=== PATIENT | female | born 1995 | race Caucasian/White ===

== ENCOUNTER 2021-03-29 20:52 | Emergency (ER) | payer OTHER, SELFPAY ==
[2021-03-29 20:54] VITALS: BP 150/80; PULSE 105; RESP 16; TEMP 36.6; O2SAT 98; BMI 18.6
[2021-03-29 21:38] LABS: MANUAL DIFF FLAG NO
[2021-03-29 21:41] LABS: Appearance Urine CLEAR; Color Urine YELLOW; Glucose Urine UA NEG (NEG); Leukocyte Esterase Urine NEG (NEG); Nitrite Urine NEG (NEG); PH 5.5 (5.0-8.0); Specific Gravity - Urine 1.015 (1.005-1.025); Urine Blood NEG (NEG); Urine Ketones 5 MG/DL (NEG); Urine Protein NEG (NEG-TRACE)
[2021-03-29 21:46] LABS: Basophils Percent Auto 0.4 % (0-2); Eosinophils Absolute Auto 0.2 X10*3/uL (0.0-0.4); Eosinophils Percent Auto 2.2 % (0-4); Hematocrit 39.6 % (37-47); Hemoglobin 13.6 g/dl (12.0-16.0); Imm Gran Abs Auto 0.01 X10*3/uL (0.00-0.03); Imm Gran Pct Auto 0.1 % (0.0-0.4); Lymphocytes Absolute Auto 1.8 X10*3/uL (1.2-4.9); Lymphocytes Percent Auto 26.3 % (20-40); Mean Corpuscular HGB Conc 34.3 g/dl (31.0-35.0); Mean Corpuscular Hemoglobin 31.6 pg (27.0-33.0); Mean Corpuscular Volume 91.9 fL (80-98); Mean Platelet Volume 10.7 fL (9.4-12.3); Monocytes Absolute Auto 0.3 X10*3/uL (0.1-1.2); Monocytes Percent Auto 4.9 % (2-11); Neutrophils Absolute Auto 4.5 X10*3/uL (2.0-8.3); Neutrophils Percent Auto 66.1 % (45-73); Platelet Count 202 X10*3/uL (160-400); Red Blood Count 4.31 X10*6/uL (4.20-5.50); Red Cell Distribution Width 12.4 % (11.0-16.0); UPreg QC Valid YES; Urine Pregnancy NEGATIVE (NEGATIVE); White Blood Count 6.8 X10*3/uL (4.8-10.8)
[2021-03-29 21:53] LABS: COVID-19 Test Negative (Negative)
[2021-03-29 21:54] LABS: Anion Gap 13 (12-20); Blood Urea Nitrogen 10 mg/dL (9-16); Calcium 9.6 mg/dL (8.4-10.2); Carbon Dioxide 24 mmol/L (22-29); Chloride 105 mmol/L (96-108); Creatinine Clr Calc Pharmacy 80.5; Estimated Glomerular Filt Rate > 60; Glucose Random 85 mg/dL (60-115); Potassium 4.2 mmol/L (3.3-5.1); Sodium 138 mmol/L (135-145)
[2021-03-29 21:55] LABS: Amphetamine Screen Urine POSITIVE (Not Detect); Barbiturates, Urine Not Detected (Not Detect); Benzodiazepines Screen Urine Not Detected (Not Detect); Cannabinoid Screen Urine POSITIVE (Not Detect); Cocaine Screen Urine Not Detected (Not Detect); Fentanyl, urine Not Detected (Not Detect); Opiate Screen Urine Not Detected (Not Detect); Phencyclidine Screen Urine Not Detected (Not Detect)
[2021-03-29 21:56] LABS: Bacteria Urine 1+ /LPF; RBC Urine 0-2 /HPF (0); Squamous Epithelial Cell Urine 1+ /LPF; WBC Urine 0 /HPF (0-4)
[2021-03-30 00:36] VITALS: BP 115/66; PULSE 87; RESP 16; TEMP 37; O2SAT 99
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
--- NOTE | 2021-03-30 06:14 | PC.NURSE ---
Patient slept through the night, no distress observed/reported, behavior appropriate, patient got assessed by the care team, disposition is d/c in the morning with PHP plan. med rec completed pending provider's approval, vss, will continue to monitor.
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
--- NOTE | 2021-03-30 07:41 | PC.NURSE ---
patient awaits discharge, had client sign dc paperwork.
== END 2021-03-30 07:45 | disposition home or self-care (01) ==
PROVIDERS: Emergency Provider Emergency Medicine Emergency Medical Services
DX: F33.1 Major depressive disorder, recurrent, moderate (principal); R45.851 Suicidal ideations; F12.90 Cannabis use, unspecified, uncomplicated; F98.8 Other specified behavioral and emotional disorders with onset usually occurring in childhood and adolescence; Z20.822 Contact with and (suspected) exposure to COVID-19; Z79.899 Other long term (current) drug therapy
CPT/HCPCS: 36415; 80048; 80307; 81001; 81025; 85025; 87635; 99283; 99284

== ENCOUNTER 2021-04-01 12:18 | Inpatient (IN) | payer OTHER, SELFPAY ==
[2021-04-01 12:21] VITALS: BP 147/77; PULSE 113; RESP 16; TEMP 37.1; O2SAT 100; BMI 18.4
[2021-04-01 13:15] LABS: Amphetamine Screen Urine Not Detected (Not Detect); Barbiturates, Urine Not Detected (Not Detect); Benzodiazepines Screen Urine Not Detected (Not Detect); Cannabinoid Screen Urine POSITIVE (Not Detect); Cocaine Screen Urine Not Detected (Not Detect); Fentanyl, urine Not Detected (Not Detect); Opiate Screen Urine Not Detected (Not Detect); Phencyclidine Screen Urine Not Detected (Not Detect)
--- NOTE | 2021-04-01 13:17 | MHC.CARE ---
1030 Lengthy call from patient's therapist, Mahin Tiwari [phone], she reported being concerned about patient because PHP will not start until Apr 6 and she is worried that patient may need inpatient care, has disclosed suicidal ideation (without plan, has a history of cutting). Patient was evaluated on Thursday and denied suicidal ideation and was referred to PHP. Therapist explained that patient, has good days and bad days, and doesn't take herself seriously. Provider said she is considering meeting with daily until the intake appointment, CARE Team encouraged her to come to the ED for another assessment. However, advised the criteria for admission is imminent risk so patient will have to be honest about her symptoms and plans.
[2021-04-01 13:20] LABS: COVID-19 Test Negative (Negative); IDNOW Serial# 08D9AD1C
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
[2021-04-01 16:39] VITALS: RESP 15
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
[2021-04-02 06:00] VITALS: BP 106/56; PULSE 73; RESP 18; TEMP 36.4; O2SAT 97
[2021-04-02] MEDS: Amphetamine Mixed Salts 10 MG TABLET 15 MG PO (09:54)
[2021-04-02] MEDS: FLUoxetine HCl 10 MG CAPSULE 30 MG PO (09:54)
[2021-04-02] MEDS: buPROPion HCl XL 300 MG TAB.ER.24H PO (09:54)
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
--- NOTE | 2021-04-02 18:25 | PC.ADMIT ---
Pt is a 26 years old male who presents to [facility] FROM [facility] ed WHO IS A , cisgender female, who is on a cv status arrived approx 22:23. Pt was assessed by the CARE Team at [facility], after presenting to ED with SI with specific plan and intent to kill herself. Pt has thoughts of mutilating her own body, specific plan, means, and intent to commit suicide.
[2021-04-02 20:12] VITALS: BP 110/65; PULSE 69
[2021-04-02] MEDS: cloNIDine HCL 0.1 MG TABLET PO (20:12)
[2021-04-03 06:00] VITALS: BP 110/54; PULSE 73; TEMP 36.1; O2SAT 98
[2021-04-03] MEDS: buPROPion HCl XL 300 MG TAB.ER.24H PO (08:29)
[2021-04-03] MEDS: Amphetamine Mixed Salts 10 MG TABLET 15 MG PO (08:29)
[2021-04-03] MEDS: FLUoxetine HCl 10 MG CAPSULE 30 MG PO (08:29)
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
[2021-04-03] MEDS: lamoTRIgine 25 MG TABLET PO (12:09)
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
[2021-04-03 18:00] VITALS: BP 121/76; PULSE 81; RESP 18; TEMP 36.4; O2SAT 99
[2021-04-03 20:08] VITALS: BP 124/67; PULSE 81
[2021-04-03] MEDS: cloNIDine HCL 0.1 MG TABLET PO (20:08)
[2021-04-04] MEDS: buPROPion HCl XL 300 MG TAB.ER.24H PO (08:13)
[2021-04-04] MEDS: Amphetamine Mixed Salts 10 MG TABLET 15 MG PO (08:13)
[2021-04-04] MEDS: FLUoxetine HCl 10 MG CAPSULE 30 MG PO (08:13)
== END 2021-04-04 10:46 | disposition home or self-care (01) | DRG 885 ==
LOC: HO.ED 18:10 → HO.PM5 22:15
PROVIDERS: Physician Assistant; Admitting Provider Registered Nurse; Emergency Provider Emergency Medicine; Visit Provider Psychiatry & Neurology Psychiatry
DX: F33.1 Major depressive disorder, recurrent, moderate (principal); R45.851 Suicidal ideations; F50.2 Bulimia nervosa; Z68.1 Body mass index [BMI] 19.9 or less, adult; F43.10 Post-traumatic stress disorder, unspecified; F90.9 Attention-deficit hyperactivity disorder, unspecified type; F41.1 Generalized anxiety disorder; F10.11 Alcohol abuse, in remission; Z20.822 Contact with and (suspected) exposure to COVID-19; Z91.5 Personal history of self-harm; Z79.3 Long term (current) use of hormonal contraceptives; Z79.899 Other long term (current) drug therapy
CPT/HCPCS: 36415; 80307; 87635; 99285

== ENCOUNTER 2021-05-01 08:15 | Outpatient (RCR) | payer OTHER, SELFPAY ==
--- NOTE | 2021-04-10 11:26 | PC.NURSE ---
Called [employer] and spoke to Alba who stated patient does not have an active plan, the plan was terminated on 02/03/21. Spoke to patient who stated she is working on reinstating her plan. I told patient if she wants to come back to the program when her insurance is reinstated she could call us and schedule a re-assessment. Patient agreed and will work on getting her insurance reinstated. Patient denied any safety issues, Denied SI. Patient has the crisis number if needed. Team is aware including Pace Analyst Darlene Juan.
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
[2021-04-11 14:11] VITALS: BMI 17.9
--- NOTE | 2021-04-11 17:32 | PC.NURSE ---
Case opened in treatment team
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
--- NOTE | 2021-04-30 11:52 | HO.PHPPROGNO ---
Subjective Subjective Date of Service: 04/30/21 Reason For Visit: PTSD Interim History: Patient seen and discussed with team. Patient evaluated this morning and upon interview she reports the increase the increase prozac is fine, denies feeling flattening affect, which she initially had when going from 20 to 30 mg. She does endorse sx of hypomania including elated mood, stating I feel like a different person, its almost uncomfortable how good i feel. However, also says she feels relaxed and she has been sleeping 8 hours at night. She does state she is waking up early and has tons of energy in the day. Pt was provided education on hypomanic and manic sx, she does not want to go back down to 30 mg of prozac at this time but will monitor for sx of shreyas and agrees to do this if her sleep worsens. Will also f/u with her OP psychiatrist. Pt is willing to discontinue bupropion to avoid polypharmacy, as she denies benefit on this medication. She reports it is still hard for me to stay focused even on adderall. Discussed vyvanse and will f/u with her OP psychiatrist. Says she is no longer purging but she still restricts and binges, vyvanse may help with sx. Says she has racing thoughts but unclear if this is due to ADHD or underlying bipolar disorder. Medication Compliance: Yes Side effects from medications: No Attending Groups: Yes Review of Systems Acute medical concerns: No Medical Review of Systems: unchanged Mental Status Exam Mental Status Exam Narrative: Well developed, well nourished female, in no apparent distress.? No involuntary movements, motor activity calm.? Speech fluent, unimpaired, articulate. Patient Appearance:?Well Grooomed and Appropriate Patient Orientation:?Person, Place, Time and Situation Level of Consciousness:?Awake, Appropriate and Alert Patient Behavior:?Appropriate, Cooperative and Good Eye Contact Mood Description:?Calm, Appropriate and Depressed Affect Description:?Calm, Appropriate and Depressed Patient Cognition Impaired:?No Ability to Follow Directions:?Excellent Speech Pattern:?Clear, Appropriate, Spontaneous Speech and Coherent Memory Description:?Intact Hallucinations:?None Perceptual Disturbances:?Depersonalization (Describes times during day as if she is zoning out, blacking out, related to flashbacks.) Thought Process:?Intact, Goal Oriented and Linear Thought Content:?positive for Intact, positive for Obsessional Thoughts (intrusive thoughts / flashbacks), positive for Goal Oriented and positive for Linear Depressive Symptoms:?Difficulty Sleeping, Loss of Int. in Activity, Unhappiness, Increased Fatigue, Loss of Energy and Difficulty Concentrating Judgement:?Fair Diagnostics Vital Signs (24Hr): Body Mass Index 17.9 Assessment & Plan Assessment & Plan (1) Alcohol use disorder, moderate, in early remission: Status: Chronic Code(s): F10.21 - Alcohol dependence, in remission Assessment and Plan: Patient reports she has been able to refrain from alcohol use, states that she is feeling good about her recovery at this time. (2) MDD (major depressive disorder), recurrent episode, moderate: Status: Chronic Code(s): F33.1 - Major depressive disorder, recurrent, moderate Assessment and Plan: Patient reports improvement in sx of depression on increased fluoxetine dose of 40 mg, still on 50 mg of lamictal, denies rash/ SJS. Denies SI/SIB upon inquiry and says she feels safe. Presenting with some sx of hypomania but she is sleeping well and has not been taking her adderall, unclear if sx are due to untreated ADHD or if the increase in prozac has been activating. Pt appears insightful and agrees to monitor sx and will decrease fluoxetine dose to 30 mg if sleep worsens, will also f/u with OP providers to assist in monitoring for shreyas. (3) ADHD (attention deficit hyperactivity disorder): Status: Chronic Code(s): F90.9 - Attention-deficit hyperactivity disorder, unspecified type Assessment and Plan: Patient continues with scheduled medications for ADHD,but has not been taking her adderall consistently. Discussed switching to vyvanse as this med has a better safety profile and may help with sx of binge eating. (4) PTSD (post-traumatic stress disorder): Status: Chronic Code(s): F43.10 - Post-traumatic stress disorder, unspecified Assessment and Plan: Pt reports improvement in sx of PTSD. Reports benefit on clonidine for sx of hyperarousal. Assessment and Plan: 1. Continue lamictal 50mg daily X14 days. 2. Continue risperidone 0.5mg daily. 3. continue fluoxetine to 40 mg daily 4. continue clonidine 0.1 mg QHS 5. Follow-up as per protocol. Certification I certify that partial hospital treatment is medically necessary due to the symptoms and problems resulting from the patient's mental illness and the failure to treat the patient at the partial hospital level of care would likely result in the patient requiring inpatient psychiatric care which could not be prevented at a less intensive level of care. I spent minutes with the patient and/or on the patient floor today, greater than?50% of which was spent counseling/coordinating care. Discharge Plan Discharge Attending provider: Sukhdeep Otero Medications: New risperidone 0.5 mg tablet 0.5 mg PO DAILY Qty: 7 RF: 0 fluoxetine [Prozac] 20 mg capsule 40 mg PO DAILY Qty: 30 RF: 0 Discontinued fluoxetine 10 mg Capsule 30 mg PO DAILY 30 Days Qty: 90 RF: 0 bupropion HCl 300 mg tablet extended release 24 hr 1 tab PO QAM RF: 0 No Action lamotrigine 25 mg Tablet See Rx Instructions .ROUTE .COMPLEX 30 Days Qty: 42 RF: 0 clonidine HCl 0.1 mg tablet 0.1 mg PO BEDTIME 30 Days Qty: 30 RF: 0 norethindrone-e.estradiol-iron [June FE 07/25 (28)] 1 mg-20 mcg (21)/75 mg (7) tablet 1 tab PO DAILY RF: 0 dextroamphetamine-amphetamine 15 mg tablet 1 tab PO BID RF: 0 Stand Alone Forms: Patient Portal Discharge page
--- NOTE | 2021-05-01 13:02 | PC.NURSE ---
Patient is scheduled to discharge from [facility] today. Stated she feels ready for discharge however feels, a little sad and nervous . Patient denied SI, no safety concerns. Patient has the crisis number if needed. Reviewed patient medications with patient. Patient reports taking medications as prescribed. Patient stated she has one pill left of Respirdal and needs a refill. Stated she has an appointment with her prescriber one month from now. Alda Tobin NP is aware.
--- NOTE | 2021-05-01 15:45 | PC.NURSE ---
I called and spoke to Giuliana Tiwari ([phone]), pt's therapist, and informed her of pt's successful discharge from [facility], and spoke about the work that pt did in treatment.
== END 2021-05-02 07:13 | disposition home or self-care (01) ==
LOC: HO.PHPA 08:15
PROVIDERS: Visit Provider Psychiatry & Neurology Psychiatry
DX: F33.1 Major depressive disorder, recurrent, moderate (principal); F43.10 Post-traumatic stress disorder, unspecified; F90.9 Attention-deficit hyperactivity disorder, unspecified type; F10.21 Alcohol dependence, in remission; Z79.899 Other long term (current) drug therapy
CPT/HCPCS: 90791; 90853